=== PATIENT | female | born 1955 | race African-American/Black ===

== ENCOUNTER 2022-11-09 14:32 | Emergency (ER) | payer OTHER ==
[2022-11-09 15:20] LABS: #Monocytes 0.3 thou/uL (0.11-0.59); #Neutrophils 3.1 thou/uL (1.40-6.50); %Basophils 0.2 % (0.0-1.0); %Eosinophils 0.7 % (0.0-10.0); %Lymphocytes 36.7 % (21.0-51.0); %Monocytes 4.7 % (0.0-10.0); %Neutrophils 57.5 % (42.0-75.0); Hemoglobin 13.6 g/dL (12.0-16.0); Mean Corpuscular HGB CONC 33.4 g/dL (32.0-36.0); Mean Corpuscular Hemoglobin 30.4 pg (27.0-31.0); Mean Corpuscular Volume 91.1 fl (78.0-98.0); Mean Platelet Volume 9.7 fL (7.4-10.4); Platelet Count 261 10x3/uL (130-400); RBC Distribution Width 12.1 % (11.5-14.5); Red Blood Cell (RBC) Count 4.47 mill/uL (4.20-5.40); White Blood Cell (WBC) Count 5.3 10x3/uL (4.8-10.8)
[2022-11-09 15:43] LABS: ALT (SGPT) 8 U/L (8-55); AST (SGOT) 11 U/L (5-34); Albumin 3.4 g/dL (3.4-4.8); Alkaline Phosphatase 102 U/L (40-110); Anion Gap 13 mmol/L (10-20); BUN (Urea Nitrogen) 24 mg/dL (9.8-20.1); Bilirubin, Total 0.3 mg/dL (0.2-1.2); Calc. Creatinine Clearance 0 mL/min (70-130); Calcium 9.3 mg/dL (7.8-10.44); Carbon Dioxide 24 mmol/L (23-31); Chloride 103 mmol/L (98-107); Estimated GFR 50; Globulin 3.4 g/dL (2.4-3.5); Glucose 319 mg/dL (80-115); Magnesium 1.7 mg/dL (1.6-2.6); Protein, Total 6.8 g/dL (5.8-8.1); Sodium 136 mmol/L (136-145)
[2022-11-09 15:57] LABS: Bacteria/HPF 3+ HPF (None Seen); Bilirubin Negative (Negative); Blood, Urine 2+ (Negative); CAUTI Indications for Culture Dysuria,urgency,freq; Clarity Turbid (Clear); Glucose, Urine (Dipstick) 500 mg/dL (Negative); Ketone, Urine Negative (Negative); Leukocyte 500 Leu/uL (Negative); Nitrite 2+ (Negative); Protein, Urine (Dipstick) 600 mg/dL (Neg-Trace); RBC/HPF 21-50 HPF (0-3); Specific Gravity, Urine 1.031 (1.002-1.036); Urobilinogen Normal mg/dL (Less than 2); WBC/HPF Greater than 50 HPF (0-3)
[2022-11-09 15:58] LABS: Urine Culture Reflex Yes Yes
== END 2022-11-09 18:08 | disposition home or self-care (01) ==
LOC: ERS 14:32
DX: R55 Syncope and collapse (principal); I95.9 Hypotension, unspecified; N39.0 Urinary tract infection, site not specified; E11.9 Type 2 diabetes mellitus without complications; I10 Essential (primary) hypertension; F17.210 Nicotine dependence, cigarettes, uncomplicated
CPT/HCPCS: 36415; 70450; 71045; 80053; 81001; 83735; 84484; 85025; 87077; 87086; 87186; 93005; 99283

== ENCOUNTER 2023-04-13 12:14 | Emergency (ER) | payer OTHER ==
[2023-04-13 13:00] LABS: #Monocytes 0.3 thou/uL (0.11-0.59); #Neutrophils 2.7 thou/uL (1.40-6.50); %Basophils 0.4 % (0.0-1.0); %Eosinophils 0.4 % (0.0-10.0); %Lymphocytes 32.1 % (21.0-51.0); %Monocytes 6.9 % (0.0-10.0); %Neutrophils 59.8 % (42.0-75.0); Hematocrit 33.8 % (36.0-47.0); Hemoglobin 11.4 g/dL (12.0-16.0); Mean Corpuscular HGB CONC 33.7 g/dL (32.0-36.0); Mean Corpuscular Hemoglobin 31.1 pg (27.0-31.0); Mean Corpuscular Volume 92.3 fl (78.0-98.0); Mean Platelet Volume 10.2 fL (7.4-10.4); Platelet Count 227 10x3/uL (130-400); RBC Distribution Width 12.5 % (11.5-14.5); Red Blood Cell (RBC) Count 3.66 mill/uL (4.20-5.40); White Blood Cell (WBC) Count 4.5 10x3/uL (4.8-10.8)
[2023-04-13 13:22] LABS: ALT (SGPT) Less than 7 U/L (8-55); AST (SGOT) 11 U/L (5-34); Albumin 3.2 g/dL (3.4-4.8); Alkaline Phosphatase 91 U/L (40-110); Anion Gap 13 mmol/L (10-20); BUN (Urea Nitrogen) 18 mg/dL (9.8-20.1); Bilirubin, Total 0.3 mg/dL (0.2-1.2); Calc. Creatinine Clearance 0 mL/min (70-130); Calcium 8.9 mg/dL (7.8-10.44); Carbon Dioxide 26 mmol/L (23-31); Chloride 104 mmol/L (98-107); Estimated GFR 55; Glucose 229 mg/dL (80-115); Potassium 3.8 mmol/L (3.5-5.1); Protein, Total 6.2 g/dL (5.8-8.1); Sodium 139 mmol/L (136-145)
[2023-04-13 13:33] LABS: Troponin I 0.044 ng/mL (< 0.028)
[2023-04-13] MEDS ORDERED: Aspirin Chewable 81 MG TAB ONE (14:03)
== END 2023-04-13 14:10 | disposition left against medical advice (07) ==
LOC: ERS 12:14
DX: E11.65 Type 2 diabetes mellitus with hyperglycemia (principal); I10 Essential (primary) hypertension; F17.210 Nicotine dependence, cigarettes, uncomplicated; Z79.84 Long term (current) use of oral hypoglycemic drugs; Z79.899 Other long term (current) drug therapy
CPT/HCPCS: 36415; 36416; 80053; 84484; 85025; 93005; 96360

== ENCOUNTER 2024-03-14 12:45 | Outpatient (CLI) | payer MEDICAID, MEDICARE, OTHER | END 2024-03-14 12:46 | disposition home or self-care (01) | LOC: MRI 12:45 → EDSTATUS 13:00 | PROVIDERS: ATTEND Internal Medicine | DX: S53.104A Unspecified dislocation of right ulnohumeral joint, initial encounter (principal); S53.441A Ulnar collateral ligament sprain of right elbow, initial encounter ==

== ENCOUNTER 2024-05-07 09:00 | Observation (INO) | payer OTHER ==
[2024-05-07 09:33] LABS: #Basophils Less than 0.03 10x3/uL (0.0-0.2); %Basophils 0.2 % (0.0-1.0); %Eosinophils 0.3 % (0.0-10.0); %Lymphocytes 9.2 % (21.0-51.0); %Monocytes 3.9 % (0.0-10.0); %Neutrophils 85.9 % (42.0-75.0); Hematocrit 32.2 % (36.0-47.0); Hemoglobin 10.2 g/dL (12.0-16.0); Mean Corpuscular HGB CONC 31.7 g/dL (32.0-36.0); Mean Corpuscular Hemoglobin 29.7 pg (27.0-31.0); Mean Corpuscular Volume 93.9 fL (78.0-98.0); Platelet Count 401 10x3/uL (130-400); RBC Distribution Width 14.3 % (11.5-14.5); Red Blood Cell (RBC) Count 3.43 mill/uL (4.20-5.40)
[2024-05-07 09:51] LABS: ALT (SGPT) 11 U/L (8-55); AST (SGOT) 21 U/L (5-34); Albumin 2.1 g/dL (3.4-4.8); Alkaline Phosphatase 182 U/L (40-110); Anion Gap 16 mmol/L (10-20); BUN (Urea Nitrogen) 39 mg/dL (9.8-20.1); Bilirubin, Total 0.2 mg/dL (0.2-1.2); Calc. Creatinine Clearance 0 mL/min (70-130); Calcium 9.4 mg/dL (7.8-10.44); Carbon Dioxide 19 mmol/L (23-31); Chloride 107 mmol/L (98-107); Estimated GFR 41; Globulin 5.4 g/dL (2.4-3.5); Glucose 76 mg/dL (80-115); Magnesium 1.8 mg/dL (1.6-2.6); Potassium 5.9 mmol/L (3.5-5.1); Protein, Total 7.5 g/dL (5.8-8.1); Sodium 136 mmol/L (136-145)
[2024-05-07 10:01] LABS: Troponin I Less than 0.010 ng/mL (< 0.028)
[2024-05-07] MEDS ORDERED: Insulin Regular, Human 100 UNIT/ML 10 ML VIAL ONE (11:03)
[2024-05-07] MEDS ORDERED: Dextrose 10% in Water 250 ML ONE (11:03)
[2024-05-07] MEDS ORDERED: Calcium Chloride 1 GM/10 ML Abboject SYRINGE ONE (11:04)
[2024-05-07] MEDS ORDERED: Glucagon 1 MG/ML KIT IM PRN (12:26)
[2024-05-07] MEDS ORDERED: Dextrose 50% Abboject 50 ML SYRINGE SLOW IVP PRN (12:26)
[2024-05-07] MEDS ORDERED: Dextrose 5% in Water 1,000 ML IV PRN (12:26)
[2024-05-07] MEDS ORDERED: Insulin Lispro 100 UNIT/ML 10 ML VIAL SC PRN ×2 (12:28)
[2024-05-07 13:36] LABS: Bilirubin Negative (Negative); Blood, Urine Negative (Negative); CAUTI Indications for Culture Alt mental st,lethar; Clarity Clear (Clear); Glucose, Urine (Dipstick) Normal (Negative); Ketone, Urine Negative (Negative); Leukocyte 250 Leu/uL (Negative); Nitrite Negative (Negative); Protein, Urine (Dipstick) 50 mg/dL (Neg-Trace); RBC/HPF 0-3 HPF (0-3); Specific Gravity, Urine 1.015 (1.002-1.036); Squamous Epithelial 0-3 HPF (0-3); Urobilinogen Normal mg/dL (Less than 2)
[2024-05-07 13:38] LABS: Bacteria/HPF 1+ HPF (None Seen); Urine Culture Reflex No No
[2024-05-07 19:13] LABS: Anion Gap 15 mmol/L (10-20); BUN (Urea Nitrogen) 35 mg/dL (9.8-20.1); Calcium 9.1 mg/dL (7.8-10.44); Carbon Dioxide 18 mmol/L (23-31); Chloride 109 mmol/L (98-107); Glucose 75 mg/dL (80-115); Potassium 5.4 mmol/L (3.5-5.1); Sodium 137 mmol/L (136-145)
[2024-05-07 19:45] LABS: Calc. Creatinine Clearance 0 mL/min (70-130); Estimated GFR 58
[2024-05-07 21:27] VITALS: BMI 24.7
[2024-05-07] MEDS: LOKELMA 10 GM PACKET PO SCH (21:46)
[2024-05-07] MEDS: Acetaminophen 325 MG TAB PO PRN (23:16)
[2024-05-08 05:36] LABS: #Basophils Less than 0.03 10x3/uL (0.0-0.2); %Basophils 0.1 % (0.0-1.0); %Eosinophils 0.4 % (0.0-10.0); %Lymphocytes 13.4 % (21.0-51.0); %Monocytes 6.6 % (0.0-10.0); %Neutrophils 79.1 % (42.0-75.0); Hematocrit 25.5 % (36.0-47.0); Hemoglobin 8.4 g/dL (12.0-16.0); Mean Corpuscular HGB CONC 32.9 g/dL (32.0-36.0); Mean Corpuscular Volume 91.1 fL (78.0-98.0); Mean Platelet Volume 9.5 fL (7.4-10.4); Platelet Count 351 10x3/uL (130-400); RBC Distribution Width 14.5 % (11.5-14.5)
[2024-05-08 05:52] LABS: Anion Gap 12 mmol/L (10-20); BUN (Urea Nitrogen) 32 mg/dL (9.8-20.1); Calc. Creatinine Clearance 48 mL/min (70-130); Calcium 8.7 mg/dL (7.8-10.44); Carbon Dioxide 20 mmol/L (23-31); Chloride 110 mmol/L (98-107); Estimated GFR 56; Glucose 68 mg/dL (80-115); Sodium 137 mmol/L (136-145)
[2024-05-08] MEDS: Multivitamin W/ Minerals 1 TAB PO SCH (08:37)
[2024-05-08] MEDS: Aspirin 81 mg Enteric Coated Tablet PO SCH (08:37)
[2024-05-08] MEDS: Atorvastatin Calcium 40 MG TAB PO SCH (08:37)
[2024-05-08] MEDS: Enoxaparin 40 MG (0.4 mL) SYRINGE SC SCH (08:37)
[2024-05-08] MEDS: Memantine 5 MG TAB PO SCH (08:37)
[2024-05-08] MEDS: Ascorbic Acid 500 mg Chewable Tablet PO SCH (08:37)
[2024-05-08] MEDS: Sertraline 100 MG TAB PO SCH (08:37)
[2024-05-08] MEDS ORDERED: Clopidogrel Bisulfate 75 MG TAB PO SCH (09:00)
[2024-05-08] MEDS: Carbamide Peroxide 6.5% Otic Drops 15 ml Bottle L EAR SCH (09:10)
[2024-05-08 14:21] VITALS: BMI 24.7
[2024-05-08] MEDS: traMADol HCl 50 MG TAB PO PRN (17:05)
[2024-05-08 17:23] VITALS: BP 153/71; TEMP 98.3
[2024-05-08] MEDS ORDERED: Donepezil HCl 5 MG TAB PO SCH (21:00)
[2024-05-08] MEDS ORDERED: Mirtazapine 15 MG TAB PO SCH (21:00)
[2024-05-08] MEDS ORDERED: Gabapentin 100 MG CAP PO SCH (21:00)
== END 2024-05-08 18:45 ==
LOC: ERS 09:00 → ERHOLD 11:50 → 2NO 21:17
PROVIDERS: ADMIT Student in an Organized Health Care Education/Training Program; ATTEND Student in an Organized Health Care Education/Training Program
DX: R40.4 Transient alteration of awareness (principal); N17.9 Acute kidney failure, unspecified; I10 Essential (primary) hypertension; E11.9 Type 2 diabetes mellitus without complications; E87.6 Hypokalemia; E78.5 Hyperlipidemia, unspecified; F17.210 Nicotine dependence, cigarettes, uncomplicated; Z86.73 Personal history of transient ischemic attack (TIA), and cerebral infarction without residual deficits; Z79.84 Long term (current) use of oral hypoglycemic drugs; Z79.1 Long term (current) use of non-steroidal anti-inflammatories (NSAID); Z79.82 Long term (current) use of aspirin; Z79.02 Long term (current) use of antithrombotics/antiplatelets; Z79.899 Other long term (current) drug therapy
CPT/HCPCS: 70450; 70551; 71045; 80048 ×2; 81001; 82962 ×2; 83735; 83880; 84484; 85025; 87428; 93005; 96374; 96375; 99285; J1650; J1815; 36415; 36416; 80053; 84443; 96372; G0378